=== PATIENT | male | born 1995 | race Asian ===

== ENCOUNTER 2020-07-01 16:49 | Emergency (ER) | payer OTHER ==
[~2020-07-01] VITALS: Ht 172.7 cm; Wt 78.2 kg
[2020-07-01 17:26] VITALS: BP 138/80
--- NOTE | 2020-07-01 18:13 | PHYS DOC ---
Past Medical History Past Medical History: No Pertinent History Past Surgical History: No Surgical History Smoking Status: Current Every Day Smoker Alcohol Use: Occasionally General Adult EDM: Chief Complaint: LACERATION/AVULSION HPI: HPI: Patient is a 24 year old male who presents with states he was throwing trash into a metal trash bin when the lid came down and hit him on the bridge of his nose causing a "C" shape laceration with edges approximated to the bridge of his nose. He states he is up-to-date on his tetanus shot. He states his nose did not bleed and he did not lose consciousness. He is not on blood thinners. Patient can breathe out of his nose. There is no deformity, swelling or bruising. Patient is stable and in no distress. Review of Systems: Review of Systems: Constitutional: Denies fever or chills. [] Eyes: Denies change in visual acuity. [] HENT: Denies nasal congestion or sore throat. + Nasal pain [] Respiratory: Denies cough or shortness of breath. [] Cardiovascular: Denies chest pain or edema. [] GI: Denies abdominal pain, nausea, vomiting, bloody stools or diarrhea. [] : Denies dysuria. [] Musculoskeletal: Denies back pain or joint pain. [] Integument: Denies rash. + Laceration to nasal bridge [] Neurologic: Denies headache, focal weakness or sensory changes. [] Endocrine: Denies polyuria or polydipsia. [] Lymphatic: Denies swollen glands. [] Psychiatric: Denies depression or anxiety. [] Heart Score: C/O Chest Pain: No Risk Factors: Risk Factors: DM, Current or recent (<one month) smoker, HTN, HLP, family history of CAD, obesity. Risk Scores: Score 0 - 3: 2.5% MACE over next 6 weeks - Discharge Home Score 4 - 6: 20.3% MACE over next 6 weeks - Admit for Clinical Observation Score 7 - 10: 72.7% MACE over next 6 weeks - Early Invasive Strategies Allergies: Allergies: Allergies Coded Allergies Type Severity Reaction Last Updated Verified No Known Drug Allergies 07/01/20 No Physical Exam: PE: Constitutional: Well developed, well nourished, no acute distress, non-toxic appearance. [] HENT: Normocephalic, atraumatic, bilateral external ears normal, oropharynx moist, no oral exudates, nose normal. [] Eyes: PERRLA, EOMI, conjunctiva normal, no discharge. [] Neck: Normal range of motion, no tenderness, supple, no stridor. [] Cardiovascular:Heart rate regular rhythm, no murmur [] Lungs & Thorax: Bilateral breath sounds clear to auscultation [] Abdomen: Bowel sounds normal, soft, no tenderness, no masses, no pulsatile mass es. [] Skin: Warm, dry, no erythema, no rash. Laceration to nasal bridge. [] Back: No tenderness, no CVA tenderness. [] Extremities: No tenderness, no cyanosis, no clubbing, ROM intact, no edema. [] Neurologic: Alert and oriented X 3, normal motor function, normal sensory function, no focal deficits noted. [] Psychologic: Affect normal, judgement normal, mood normal. [] Current Patient Data: Vital Signs: Vital Signs Date Time Temp Pulse Resp B/P (MAP) Pulse Ox O2 Delivery O2 Flow Rate FiO2 07/01/20 17:26 97.9 57 18 138/80 (99) 99 Room Air 97.9 EKG: EKG: [] Radiology/Procedures: Radiology/Procedures: [] Impression: [facility] [address] [place], [place] [id number] IMAGING REPORT Signed PATIENT: JASEN RODRIGUEZ ACCOUNT: [id number] : 1995 LOCATION: ER AGE: 24 SEX: M EXAM STATUS: REG ER ORD. PHYSICIAN: KATJA COLLINS APRN REASON: NASAL INJURY WITH LACERATION PROCEDURE: CT MAXILLOFACIAL WO CONTRAST EXAM: CT maxillofacial bones without contrast INDICATION: Nasal injury with laceration COMPARISON: None TECHNIQUE: Axial CT imaging through the maxillofacial bones without intravenous contrast. Sagittal and coronal reformats were obtained. One or more of the following individualized dose reduction techniques were utilized for this examination: 1. Automated exposure control 2. Adjustment of the mA and/or kV according to patient size 3. Use of iterative reconstruction technique. FINDINGS: There is slight irregularity of the nasal bone without overlying soft tissue swelling, likely within normal limits. No definite acute fracture. Orbital dinero are intact. Fracture. No other facial fracture. There is are mucous retention cysts in both maxillary sinuses as well as some more hyperdense, complex fluid, and some air bubbles in the left maxillary sinus. Scattered fluid or mucosal th ickening in the ethmoid air cells. Frontal sinuses are clear. Globes and orbits are intact. Visual is portion of brain is unremarkable. IMPRESSION: 1. No definite facial fracture. Minimal irregularity of the nasal bone is likely within normal limits given lack of adjacent soft tissue swelling. There is a tiny hyperdensity in the skin overlying the bridge of the nasal bone that could be a foreign body. 2. There is some complex fluid in the maxillary sinuses, which could be blood or acute on chronic sinusitis. Scattered fluid or mucosal thickening in the ethmoid air cells. Electronically signed by: Ronna Jennings MD (07/01/2020 6:53 PM) [id number] DICTATED and SIGNED BY: RONNA JENNINGS MD DATE: 07/01/20 [id number] 0 Course & Med Decision Making: Course & Med Decision Making Pertinent Labs and Imaging studies reviewed. (See chart for details) See HPI. Alert and oriented x4. Ambulatory with a steady gait. Speaks in full clear sentences. There is no blood up inside the nose. Patient can breathe out of his nose. Skin pink warm and dry. No bleeding. Patient denies headache, LOC, nausea, vomiting, dizziness, falling, vision changes. No foreign body is seen after copious irrigation. Laceration repair Location: Bridge of nose 1cm very superficial. Edges approximated. Local anesthesia: None Interrupted sutures/Internal sutures: None needed Nerve/ligament/muscle damage: None Cleaning and irrigation: Chlorhexidine and saline. Antibiotic ointment is placed. The appropriate timeout was taken. The area was prepped and draped in the usual sterile fashion. The wound was copiously irrigated with normal saline and chlorhexidine. Patient tolerated well without complication. Dressing was applied to the area follow-up education is given to observe for signs and symptoms of infection, bleeding and to follow-up promptly if these occur. Patient can return in 48 hours for a wound recheck. Sutures to be removed in 7 to 10 days. [] Dragon Disclaimer: Dragon Disclaimer: This electronic medical record was generated, in whole or in part, using a voice recognition dictation system. Departure Departure Impression: Primary Impression: Nasal laceration Qualified Codes: S01.21XA - Laceration without foreign body of nose, initial encounter Disposition: HOME / SELF CARE / HOMELESS Condition: STABLE Referrals: NO PCP (PCP) LEIGHA GRANDE MD Patient Instructions: Laceration Care, Adult Additional Instructions: Keep clean and covered. Take medication as prescribed and with food. Follow-up with ENT. Scripts Amoxicillin (AMOXICILLIN) 500 Mg Capsule 1 CAP PO BID, #20 CAP Prov: KATJA COLLINS APRN 07/01/20 KATJA COLLINS APRN July 01, 2020 18:13
--- NOTE | 2020-07-01 18:56 | RAD ---
EXAM: CT maxillofacial bones without contrast INDICATION: Nasal injury with laceration COMPARISON: None TECHNIQUE: Axial CT imaging through the maxillofacial bones without intravenous contrast. Sagittal an d coronal reformats were obtained. One or more of the following individualized dose reduction techniques were utilized for this examinat ion: 1. Automated exposure control 2. Adjustment of the mA and/or kV according to patient size 3. Use of iterative reconstruction technique. FINDINGS: There is slight irregularity of the nasal bone without overlying soft tissue swelling, likely within normal limits. No definite acute fracture. Orbital dinero are intact. Fracture. No other facial fractu re. There is are mucous retention cysts in both maxillary sinuses as well as some more hyperdense, co mplex fluid, and some air bubbles in the left maxillary sinus. Scattered fluid or mucosal thickening in the ethmoid air cells. Frontal sinuses are clear. Globes and orbits are intact. Visual is portion of brain is unremarkable. IMPRESSION: 1. No definite facial fracture. Minimal irregularity of the nasal bone is likely within normal limits given lack of adjacent soft tissue swelling. There is a tiny hyperdensity in the skin overlying the bridge of the nasal bone that could be a foreign body. 2. There is some complex fluid in the maxillary sinuses, which could be blood or acute on chronic sin usitis. Scattered fluid or mucosal thickening in the ethmoid air cells. Electronically signed by: Ronna Jennings MD (07/01/2020 6:53 PM) [id number]
[2020-07-01] MEDS ORDERED: AMOX500C PO (19:07)
[2020-07-01] MEDS ORDERED: NEOMY/BACITR/POLYMYXIN OINT PACKET. TP ONE (19:15)
== END 2020-07-01 19:14 | disposition home or self-care (01) ==
LOC: ER 16:49
DX: S01.21XA Laceration without foreign body of nose, initial encounter (principal); F17.200 Nicotine dependence, unspecified, uncomplicated; W26.8XXA Contact with other sharp object(s), not elsewhere classified, initial encounter; Y93.89 Activity, other specified; Y92.89 Other specified places as the place of occurrence of the external cause; Y99.8 Other external cause status
CPT/HCPCS: 12011; 70486; 99284